=== PATIENT | male | born 1980 | race Caucasian/White ===

== ENCOUNTER 2021-01-17 17:12 | Emergency (ER) | payer OTHER ==
[2021-01-17] MEDS ORDERED: HYDROCODON-ACE1 EAC4 PO (19:27)
== END 2021-01-17 20:26 | disposition home or self-care (01) ==
LOC: ER1 17:12
DX: S46.211A Strain of muscle, fascia and tendon of other parts of biceps, right arm, initial encounter (principal); X50.9XXA Other and unspecified overexertion or strenuous movements or postures, initial encounter; X50.0XXA Overexertion from strenuous movement or load, initial encounter
CPT/HCPCS: 73080; 99283

== ENCOUNTER → 2021-01-22 | Outpatient (CLI) | payer OTHER ==
[~2021-01-22] MED LIST: HYDROCODON-ACE1 EAC4 PO
== END ==
LOC: KOH-I 08:29
DX: S46.211A Strain of muscle, fascia and tendon of other parts of biceps, right arm, initial encounter (principal)
CPT/HCPCS: 73221

== ENCOUNTER 2021-02-08 17:47 | Emergency (ER) | payer OTHER ==
[2021-02-08 19:05] LABS: HEMOGLOBIN 16.9 gm/dl (14.0-17.5); RED BLOOD COUNT 4.49 M/UL (4.20-5.50); WHITE BLOOD COUNT 10.8 K/UL (4.5-11.0)
[2021-02-08 19:22] LABS: BUN/CREATININE RATIO 12 (0-10)
== END 2021-02-08 22:13 | disposition short-term general hospital (02) ==
LOC: ER1 17:47
DX: I26.99 Other pulmonary embolism without acute cor pulmonale (principal); Z20.822 Contact with and (suspected) exposure to COVID-19; Z95.5 Presence of coronary angioplasty implant and graft
CPT/HCPCS: 71045; 80053; 81001; 82550; 82553; 83605; 83690; 83874; 83880; 84439; 84443; 84484; 85025; 87040; 93005; 99285; J1644; J2060; Q9967; U0002

== ENCOUNTER → 2021-05-11 | Outpatient (CLI) | payer OTHER | LOC: HEART 5 11:18 | DX: R93.1 Abnormal findings on diagnostic imaging of heart and coronary circulation (principal); I34.0 Nonrheumatic mitral (valve) insufficiency | CPT/HCPCS: 93306 ==

== ENCOUNTER → 2021-11-10 | Outpatient (CLI) | payer OTHER | LOC: US 10:30 | DX: M25.562 Pain in left knee (principal) | CPT/HCPCS: 93926; 93971 ==